=== PATIENT | female | born 1960 | race Two or more races ===

== ENCOUNTER 2020-03-28 20:41 | Emergency (ER) | payer OTHER ==
[~2020-03-28] VITALS: Ht 157.5 cm; Wt 120.2 kg
[2020-03-28 20:50] VITALS: Ht 157.5 cm; Wt 120.2 kg
[2020-03-28 22:08] LABS: BASOPHIL % 0.1 % (0-2); PLATELET COUNT 263 x10^3mcL (130-400); RED CELL DISTRIBUTION WIDTH 12.9 % (11.5-14.5)
[2020-03-28 22:27] LABS: ALKALINE PHOSPHATASE 133 U/L (46-116); ALT/SGPT 31 U/L (14-59); AST/SGOT 25 U/L (15-37); BILIRUBIN TOTAL 0.7 mg/dL (0.20-1.00); CHLORIDE SERUM 102 mmol/L (98-107); CREATININE SERUM 0.7 mg/dL (0.6-1.0); GFR1 > 60 mL/min; GLUCOSE SERUM 115 mg/dL (74-106); LIPASE 60 IU/L (73-393); POTASSIUM SERUM 4.3 mmol/L (3.5-5.1); SODIUM SERUM 139 mmol/L (136-145); TOTAL PROTEIN, SERUM 7.1 g/dL (6.4-8.2)
[2020-03-29] VITALS: BP 141/84
== END 2020-03-29 | disposition home or self-care (01) ==
LOC: ED 20:41
PROVIDERS: Student in an Organized Health Care Education/Training Program
DX: R10.13 Epigastric pain (principal); J45.909 Unspecified asthma, uncomplicated
CPT/HCPCS: Q0092

== ENCOUNTER 2020-04-02 18:03 | Emergency (ER) | payer OTHER, SELFPAY ==
[~2020-04-02] VITALS: Ht 157.5 cm; Wt 113.4 kg
[2020-04-02 18:08] VITALS: Ht 157.5 cm; Wt 113.4 kg
[2020-04-02 19:42] LABS: BASOPHIL % 0.5 % (0-2); PLATELET COUNT 251 x10^3mcL (130-400)
[2020-04-02 20:16] LABS: CALCIUM 9.4 mg/dL (8.5-10.1); CARBON DIOXIDE 28.8 mmol/L (21-32); CHLORIDE SERUM 98 mmol/L (98-107); CREATININE SERUM 0.9 mg/dL (0.6-1.0); GFR1 > 60 mL/min; GLUCOSE SERUM 109 mg/dL (74-106); POTASSIUM SERUM 4.7 mmol/L (3.5-5.1); SODIUM SERUM 135 mmol/L (136-145)
[2020-04-02 20:21] LABS: ALBUMIN 4.2 g/dL (3.4-5.0); ALKALINE PHOSPHATASE 126 U/L (46-116); ALT/SGPT 51 U/L (14-59); AST/SGOT 32 U/L (15-37); BILIRUBIN TOTAL 0.7 mg/dL (0.20-1.00); TOTAL PROTEIN, SERUM 7.7 g/dL (6.4-8.2)
[2020-04-02 21:34] VITALS: BP 127/78
== END 2020-04-02 21:34 | disposition home or self-care (01) ==
LOC: ED 18:03
PROVIDERS: Emergency Medicine
DX: K29.70 Gastritis, unspecified, without bleeding (principal); G47.33 Obstructive sleep apnea (adult) (pediatric); Z20.828 Contact with and (suspected) exposure to other viral communicable diseases
CPT/HCPCS: Q0092; U0003-CS